=== PATIENT | female | born 1955 | race Caucasian/White ===

== ENCOUNTER 2019-05-19 22:13 | Emergency (ER) | payer OTHER ==
[~2019-05-19] VITALS: Ht 162.6 cm; Wt 73.5 kg
[2019-05-20] MEDS ORDERED: COZAAR50 MG PO (01:25)
[2019-05-20] MEDS ORDERED: MOBIC15 MG PO (03:01)
== END 2019-05-20 04:16 | disposition home or self-care (01) ==
LOC: ER 22:13
DX: M25.562 Pain in left knee (principal); M25.561 Pain in right knee